=== PATIENT | male | born 1980 | race Caucasian/White ===

== ENCOUNTER 2021-03-14 21:31 | Emergency (ER) | payer SELFPAY ==
[~2021-03-14] VITALS: Ht 165.1 cm; Wt 59.0 kg
[~2021-03-14 21:31] MED LIST: BUPR150T2 PO; CYCL10 PO; FLUO20 PO; HYDACE5 PO; OXYACE5T PO; PERM5TC TOP
== END 2021-03-14 23:23 | disposition home or self-care (01) ==
LOC: ER 21:31
DX: S61.412A Laceration without foreign body of left hand, initial encounter (principal); Z88.0 Allergy status to penicillin; Z79.899 Other long term (current) drug therapy; W27.0XXA Contact with workbench tool, initial encounter
CPT/HCPCS: 12002; 73120; 99283-25; A9270